=== PATIENT | male | born 1970 | race Caucasian/White ===

== ENCOUNTER 2018-11-21 15:32 | Emergency (ER) | payer OTHER ==
[~2018-11-21] VITALS: Ht 177.8 cm; Wt 81.6 kg
[2018-11-21] MEDS ORDERED: IV NORMAL SALINE 1000ML BAG 1,000 ML IV ONE (16:00)
[2018-11-21] MEDS ORDERED: CLINDAMYCIN 600MG PREMIX 50 ML IV ONE (16:00)
[2018-11-21] MEDS ORDERED: ONDANSETRON PF 4 MG/2 ML VIAL. IM ONE (16:00)
[2018-11-21 16:16] VITALS: BP 118/67
[2018-11-21 16:20] LABS: BASO # 0.1 x10^3/uL (0.0-0.2); BASO % 1 % (0-3); EOS % 0 % (0-3); HEMATOCRIT 41.7 % (39.0-53.0); HEMOGLOBIN 14.4 g/dL (13.0-17.5); LYMPH % 11 % (24-48); MEAN CORPUSCULAR HEMOGLOBIN 32 pg (25-35); MEAN CORPUSCULAR HGB CONC 35 g/dL (31-37); MEAN CORPUSCULAR VOLUME 92 fL (79-100); MONO # 0.4 x10^3/uL (0.0-1.1); MONO % 4 % (0-9); NEUT % 84 % (31-73); PLATELET COUNT 333 x10^3/uL (140-400); RED BLOOD COUNT 4.54 x10^6/uL (4.30-5.70); RED CELL DISTRIBUTION WIDTH 13.8 % (11.5-14.5); WHITE BLOOD COUNT 9.5 x10^3/uL (4.0-11.0)
[2018-11-21] MEDS ORDERED: KETOROLAC 15 MG/ML VIAL. IV ONE (16:30)
[2018-11-21] MEDS ORDERED: fentaNYL PF VIAL 100 MCG/2 ML VIAL IV ONE (16:30)
[2018-11-21 16:36] LABS: CALCIUM 9.3 mg/dL (8.5-10.1); CREATININE 0.8 mg/dL (0.7-1.3); GFR 104.5; POTASSIUM 4.3 mmol/L (3.5-5.1)
[2018-11-21 16:41] LABS: ALBUMIN/GLOBULIN RATIO 1.2 (1.0-1.7); TOTAL BILIRUBIN 0.2 mg/dL (0.2-1.0); TOTAL PROTEIN 7.4 g/dL (6.4-8.2)
[2018-11-21] MEDS ORDERED: ONDA4TAB12 PO (16:55)
[2018-11-21] MEDS ORDERED: CLIN150C14 PO (16:55)
--- NOTE | 2018-11-21 16:55 | PHYS DOC ---
Past Medical History Past Medical History: Anxiety, High Cholesterol, Hypertension Past Surgical History: Tonsillectomy Additional Past Surgical Histo: RIGHT KNEE Additional Information: non smoker Alcohol Use: Occasionally Drug Use: None Adult General Chief Complaint Chief Complaint: CELLULITIS HPI HPI Patient is a 47 year old male who was bit on Wednesday. The location of the bite was on the right upper arm. He went to an urgent care clinic on Wednesday was prescribed a steroid as the doctor thought it was a bee sting. Erythema around the bite has grown since that time it has become more painful. Associated symptoms include nausea, and headache. Rates his pain 7 out of 10. Review of Systems Review of Systems Constitutional: Denies fever or chills [] Eyes: Denies change in visual acuity, redness, or eye pain [] HENT: Denies nasal congestion or sore throat [] Respiratory: Denies cough or shortness of breath [] Cardiovascular: No additional information not addressed in HPI [] GI: Denies abdominal pain, vomiting, bloody stools or diarrhea Reports Nausea : Denies dysuria or hematuria [] Musculoskeletal: Denies back pain or joint pain [] Integument: Denies rash or skin lesions but has cellulitis around right upper arm. Neurologic: Reports headache, Denies focal weakness or sensory changes [] Endocrine: Denies polyuria or polydipsia [] Complete systems were reviewed and found to be within normal limits, except as documented in this note. Current Medications Current Medications Current Medications Medications (Trade) Dose Ordered Sig/Fercho Start Time Stop Time Status Last Admin Dose Admin Clindamycin Phosphate 50 ml @ 100 mls/hr 1X ONCE 11/21/18 16:00 11/21/18 16:29 DC 11/21/18 16:22 100 MLS/HR Fentanyl Citrate (Fentanyl 2ml Vial) 75 mcg 1X ONCE 11/21/18 16:30 11/21/18 16:31 DC 11/21/18 16:40 75 MCG Ketorolac Tromethamine (Toradol 15mg Vial) 15 mg 1X ONCE 11/21/18 16:30 11/21/18 16:31 DC 11/21/18 16:37 15 MG Ondansetron HCl (Zofran) 4 mg 1X ONCE 11/21/18 16:00 11/21/18 16:01 DC 11/21/18 16:13 4 MG Sodium Chloride 1,000 ml @ 1,000 mls/hr 1X ONCE 11/21/18 16:00 11/21/18 16:59 11/21/18 16:14 1,000 MLS/HR Allergies Allergies Allergies Coded Allergies Type Severity Reaction Last Updated Verified morphine Allergy Severe Anaphylaxis 11/21/18 Yes Physical Exam Physical Exam Constitutional: Well developed, well nourished, no acute distress, non-toxic appearance. [] HENT: Normocephalic, atraumatic, bilateral external ears normal, oropharynx moist, no oral exudates, nose normal. [] Eyes: PERRLA, EOMI, conjunctiva normal, no discharge. [] Neck: Normal range of motion, no tenderness, supple, no stridor. [] Cardiovascular:Heart rate regular rhythm, no murmur [] Lungs & Thorax: Bilateral breath sounds clear to auscultation [] Abdomen: Bowel sounds normal, soft, no tenderness, no masses, no pulsatile masses. [] Skin: Warm, dry, erythema around R upper arm, with warmth and swelling. Back: No tenderness, no CVA tenderness. [] Extremities: No tenderness, no cyanosis, no clubbing, ROM intact, no edema. [] Neurologic: Alert and oriented X 3, normal motor function, normal sensory function, no focal deficits noted. [] Psychologic: Affect normal, judgement normal, mood normal. [] Current Patient Data Vital Signs Vital Signs Date Time Temp Pulse Resp B/P (MAP) Pulse Ox O2 Delivery O2 Flow Rate FiO2 11/21/18 16:16 58 20 118/67 (84) 94 Room Air 11/21/18 15:49 97.7 97.7 Lab Values Laboratory Tests Test 11/21/18 15:45 White Blood Count 9.5 x10^3/uL (4.0-11.0) Red Blood Count 4.54 x10^6/uL (4.30-5.70) Hemoglobin 14.4 g/dL (13.0-17.5) Hematocrit 41.7 % (39.0-53.0) Mean Corpuscular Volume 92 fL (79-100) Mean Corpuscular Hemoglobin 32 pg (25-35) Mean Corpuscular Hemoglobin Concent 35 g/dL (31-37) Red Cell Distribution Width 13.8 % (11.5-14.5) Platelet Count 333 x10^3/uL (140-400) Neutrophils (%) (Auto) 84 % (31-73) H Lymphocytes (%) (Auto) 11 % (24-48) L Monocytes (%) (Auto) 4 % (0-9) Eosinophils (%) (Auto) 0 % (0-3) Basophils (%) (Auto) 1 % (0-3) Neutrophils # (Auto) 8.0 x10^3uL (1.8-7.7) H Lymphocytes # (Auto) 1.0 x10^3/uL (1.0-4.8) Monocytes # (Auto) 0.4 x10^3/uL (0.0-1.1) Eosinophils # (Auto) 0.0 x10^3/uL (0.0-0.7) Basophils # (Auto) 0.1 x10^3/uL (0.0-0.2) Sodium Level 139 mmol/L (136-145) Potassium Level 4.3 mmol/L (3.5-5.1) Chloride Level 104 mmol/L (98-107) Carbon Dioxide Level 24 mmol/L (21-32) Anion Gap 11 (6-14) Blood Urea Nitrogen 16 mg/dL (8-26) Creatinine 0.8 mg/dL (0.7-1.3) Estimated GFR (Cockcroft-Gault) 104.5 BUN/Creatinine Ratio 20 (6-20) Glucose Level 112 mg/dL (70-99) H Calcium Level 9.3 mg/dL (8.5-10.1) Total Bilirubin 0.2 mg/dL (0.2-1.0) Aspartate Amino Transferase (AST) 15 U/L (15-37) Alanine Aminotransferase (ALT) 41 U/L (16-63) Alkaline Phosphatase 47 U/L (46-116) Total Protein 7.4 g/dL (6.4-8.2) Albumin 4.0 g/dL (3.4-5.0) Albumin/Globulin Ratio 1.2 (1.0-1.7) Laboratory Tests 11/21/18 15:45 Laboratory Tests 11/21/18 15:45 EKG EKG [] Radiology/Procedures Radiology/Procedures [] Course & Med Decision Making Course & Med Decision Making Pertinent Labs and Imaging studies reviewed. (See chart for details) Will give Clindamycin IV, check labs, and give supportive care. Patient is agreeable. Patient labs shows WBC of 9 otherwise unremarkable. Will put on PO clindamycin and have follow up with primary care doctor. Improved with IV clindamycin. Will d/c home. Arely Disclaimer Purvion Disclaimer This electronic medical record was generated, in whole or in part, using a voice recognition dictation system. Departure Departure Impression: Primary Impression: Cellulitis Disposition: HOME, SELF-CARE Condition: STABLE Referrals: DEJA HOOD MD (PCP) Patient Instructions: Cellulitis Additional Instructions: Please follow up with primary care doctor in regard to cellulitis. Take antibiotics. If continues to grow or get worse come back to ER. Scripts Clindamycin Hcl (CLINDAMYCIN HCL) 150 Mg Capsule 450 MG PO TID for 7 Days, #63 CAP Prov: KATHI MARTINEZ APRN 11/21/18 Ondansetron (ONDANSETRON ODT) 4 Mg Tab.rapdis 1 TAB PO PRN Q6-8HRS PRN for NAUSEA, #16 TAB Prov: KATHI MARTINEZ APRN 11/21/18 Problem Qualifiers Primary Impression: Cellulitis Site of cellulitis: extremity Site of cellulitis of extremity: upper extremity Laterality: right Qualified Codes: L03.113 - Cellulitis of right upper limb KATHI MARTINEZ APRN Nov 21, 2018 16:55
== END 2018-11-21 17:30 | disposition home or self-care (01) ==
LOC: ER 15:32
DX: L03.113 Cellulitis of right upper limb (principal); R51 Headache; R11.0 Nausea; E78.00 Pure hypercholesterolemia, unspecified; I10 Essential (primary) hypertension; Z88.5 Allergy status to narcotic agent
CPT/HCPCS: 36415; 80053; 85025; 96365; 96372; 96375; 99284; J1885; J2405; J3010; J3490; J7030

== ENCOUNTER 2018-11-23 08:46 | Inpatient (IN) | payer OTHER ==
[~2018-11-23] VITALS: Ht 172.7 cm; Wt 68.0 kg
[~2018-11-23 08:46] MED LIST: CLIN150C14 PO; ONDA4TAB12 PO
[2018-11-23] MEDS ORDERED: fentaNYL PF VIAL 100 MCG/2 ML VIAL IV PRN ×2 (09:15→09:30)
[2018-11-23] MEDS ORDERED: VANCOMYCIN PER PHARMACY MC ONE (09:15)
--- NOTE | 2018-11-23 09:24 | PHYS DOC ---
Past Medical History Past Medical History: Anxiety, High Cholesterol, Hypertension Past Surgical History: Tonsillectomy Additional Past Surgical Histo: RIGHT KNEE Alcohol Use: Occasionally Drug Use: None Adult General Chief Complaint Chief Complaint: UPPER EXTREMITY SWELLING HPI HPI Patient is a 47 year old male with history of hypertension-not on medication, high cholesterol, anxiety, smoking, who presents to the ED today complaining of a worsening infection to the right upper extremity. Patient states on Wednesday last week he got bit by an insect, he believes it was a spider though he did not see it. He states he was seen at urgent care he was started on steroids, he states symptoms did not improve, he states the area of redness started to grew bigger, he came to the ED on Wednesday, November 21, 2018, he was given IV clindamycin and discharged with oral clindamycin. He states he has been taking the clindamycin as prescribed this morning he woke up and the area of redness had grown bigger. He showed me pictures of taken on Wednesday of the infection compared to today, the area of redness had grown significantly larger, he states he is having pain whenever he extends his right elbow. He rates the pain at 8 out of 10, describes the pain as sharp and intermittent. Denies anything relieving this pain. Denies any nausea vomiting. Denies any fever. Off note he mentions his and daughter came from [facility] a week before he got bit. PCP Dr. Deja Wilkins Review of Systems Review of Systems Constitutional: Denies fever or chills [] Eyes: Denies change in visual acuity, redness, or eye pain [] HENT: Denies nasal congestion or sore throat [] Respiratory: Denies cough or shortness of breath [] Cardiovascular: No additional information not addressed in HPI [] GI: Denies abdominal pain, nausea, vomiting, bloody stools or diarrhea [] : Denies dysuria or hematuria [] Musculoskeletal: Denies back pain or joint pain [] Integument: Cellulitis right upper extremity Neurologic: Denies headache, focal weakness or sensory changes [] All other systems were reviewed and found to be within normal limits, except as documented in this note. Current Medications Current Medications Allergies Allergies Allergies Coded Allergies Type Severity Reaction Last Updated Verified morphine Allergy Severe Anaphylaxis 11/21/18 Yes Physical Exam Physical Exam Constitutional: Well developed, well nourished, no acute distress, non-toxic appearance. [] HENT: Normocephalic, atraumatic, bilateral external ears normal, oropharynx moist, no oral exudates, nose normal. [] Eyes: PERRLA, EOMI, conjunctiva normal, no discharge. [] Neck: Normal range of motion, no tenderness, supple, no stridor. [] Cardiovascular:Heart rate regular rhythm, no murmur [] Lungs & Thorax: Bilateral breath sounds clear to auscultation [] Abdomen: Bowel sounds normal, soft, no tenderness, no masses, no pulsatile masses. [] Skin: There is mild swelling to the RUE around the inner elbow. Right inner biceps with an area of darkness approx. 1X0.5cm with surrounding cellulitis approx. 10X5 cm. The area with cellulitis is warm, dry, no drainage. Full ROM to JITENDRA, patient and elbow to extend and flex the right elbow though he states it is painful during ROM. +2 right radial pulse. Cap refill <2 seconds to the right fingers. Adequate radial, medial and ulnar sensation to the RUE. Back: No tenderness, no CVA tenderness. [] Extremities: No tenderness, no cyanosis, no clubbing, ROM intact, no edema. [] Neurologic: Alert and oriented X 3, normal motor function, normal sensory function, no focal deficits noted. [] Psychologic: Affect normal, judgement normal, mood normal. [] Current Patient Data Vital Signs Vital Signs Date Time Temp Pulse Resp B/P (MAP) Pulse Ox O2 Delivery O2 Flow Rate FiO2 11/23/18 08:50 98.2 71 16 146/93 (110) 96 Room Air 98.2 EKG EKG [] Radiology/Procedures Radiology/Procedures []PROCEDURE: ELBOW RIGHT 2V Examination: 2 views of the right elbow HISTORY: History of cellulitis, insect bite COMPARISON: None available. Findings/ impression: The alignment of the elbow joint grossly appears unremarkable. Mild soft tissue swelling identified posterior to the elbow joint could be secondary to cellulitis or edema. Electronically signed by: Hai Lutz MD (11/23/2018 9:30 AM) [place] [id number] DICTATED and SIGNED BY: HAI LUTZ MD DATE: 11/23/18 8354 Course & Med Decision Making Course & Med Decision Making Pertinent Labs and Imaging studies reviewed. (See chart for details) This is a 47-year-old male patient who presents to the ED today with worsening cellulitis to the right upper extremity. The patient was bit by an insect but he states that Wednesday last week. Seen at urgent care, started on steroids, came to the ED on Wednesday with worsening symptoms, got clindamycin IV and clindamycin. Was discharged to home. The area of redness has grown bigger. Patient is now complaining of pain when he extends his right elbow. We will start him on sepsis protocol including IV fluids and antibiotics. Advised to consider smoking cessation and following up with PCP for high blood pressure BP here was 140s/90 states he is supposed to take BP medicines but he decided to take supplements and be on a "diet". Spoke with Dr. Newman who accepted patient for admission. Dragon Disclaimer Dragon Disclaimer This electronic medical record was generated, in whole or in part, using a voice recognition dictation system. Departure Departure Impression: Primary Impression: Right arm cellulitis Additional Impressions: Insect bite of right upper extremity Smoking addiction Disposition: ADMITTED INPATIENT Condition: STABLE Referrals: DEJA WILKINS MD (PCP) Problem Qualifiers Additional Impressions: Insect bite of right upper extremity Encounter type: subsequent encounter Qualified Codes: S40.861D - Insect bite (nonvenomous) of right upper arm, subsequent encounter; W57.XXXD - Bitten or stung by nonvenomous insect and other nonvenomous arthropods, subsequent encounter JESICA DRUMMOND APRN Nov 23, 2018 09:24
[2018-11-23] MEDS ORDERED: ONDANSETRON PF 4 MG/2 ML VIAL. ONE (09:29)
[2018-11-23] MEDS ORDERED: ACETAMINOPHEN 325 MG TABLET. PO PRN (09:30)
[2018-11-23] MEDS ORDERED: PIPERACILLIN/TAZOBACTAM 4.5 GM in IV NORMAL SALINE 100ML 100 ML IV ONE (09:30)
--- NOTE | 2018-11-23 09:33 | RAD ---
Examination: 2 views of the right elbow HISTORY: History of cellulitis, insect bite COMPARISON: None available. Findings/ impression: The alignment of the elbow joint grossly appears unremarkable. Mild soft tissue swelling identified posterior to the elbow joint could be secondary to cellulitis or edema. Electronically signed by: Hai Lutz MD (11/23/2018 9:30 AM) [place] [id number]
[2018-11-23] MEDS: IV NORMAL SALINE 1000ML BAG 1,000 ML IV SCH ×4 (09:36→15:53)
[2018-11-23 09:52] LABS: BASO % 1 % (0-3); EOS # 0.4 x10^3/uL (0.0-0.7); EOS % 5 % (0-3); HEMATOCRIT 44.5 % (39.0-53.0); HEMOGLOBIN 15.3 g/dL (13.0-17.5); LYMPH # 1.2 x10^3/uL (1.0-4.8); LYMPH % 17 % (24-48); MEAN CORPUSCULAR HEMOGLOBIN 32 pg (25-35); MEAN CORPUSCULAR HGB CONC 35 g/dL (31-37); MEAN CORPUSCULAR VOLUME 92 fL (79-100); MONO # 0.5 x10^3/uL (0.0-1.1); MONO % 8 % (0-9); NEUT # 4.5 x10^3uL (1.8-7.7); NEUT % 69 % (31-73); PLATELET COUNT 304 x10^3/uL (140-400); RED BLOOD COUNT 4.85 x10^6/uL (4.30-5.70); RED CELL DISTRIBUTION WIDTH 13.6 % (11.5-14.5); WHITE BLOOD COUNT 6.6 x10^3/uL (4.0-11.0)
[2018-11-23 10:02] LABS: CALCIUM 9.5 mg/dL (8.5-10.1); CREATININE 0.8 mg/dL (0.7-1.3); GFR 104.5; POTASSIUM 4.2 mmol/L (3.5-5.1)
[2018-11-23 10:10] LABS: PROTHROMBIN TIME PATIENT 12.2 SEC (11.7-14.0)
[2018-11-23 10:18] LABS: ALBUMIN 3.7 g/dL (3.4-5.0); TOTAL BILIRUBIN 0.2 mg/dL (0.2-1.0); TOTAL PROTEIN 7.3 g/dL (6.4-8.2)
[2018-11-23 10:30] VITALS: BP 142/74
[2018-11-23] MEDS ORDERED: VANCOMYCIN 1.75 GM in IV NORMAL SALINE 500ML BAG 500 ML IV ONE (10:30)
--- NOTE | 2018-11-23 11:00 | NUR ---
Pt admitted from ED. Arrived via gurney. Able to ambulate to bed independently. A&o X4, VSS, c/o pain 8/10, R arm swollen and reddened. Completed admission assessment. IV Abx infusing. Pictures taken of right arm. Oriented to room and routines. Call light within reach. at bedside. Will continue to monitor.
--- NOTE | 2018-11-23 11:30 | PDOC ---
Infectious Disease Note Vital Sign Vital Signs Vital Signs Date Time Temp Pulse Resp B/P (MAP) Pulse Ox O2 Delivery O2 Flow Rate FiO2 11/23/18 10:30 97.6 60 20 142/74 (96) 98 Room Air 97.6 Labs Lab Laboratory Tests Test 11/23/18 09:25 White Blood Count 6.6 x10^3/uL (4.0-11.0) Red Blood Count 4.85 x10^6/uL (4.30-5.70) Hemoglobin 15.3 g/dL (13.0-17.5) Hematocrit 44.5 % (39.0-53.0) Mean Corpuscular Volume 92 fL (79-100) Mean Corpuscular Hemoglobin 32 pg (25-35) Mean Corpuscular Hemoglobin Concent 35 g/dL (31-37) Red Cell Distribution Width 13.6 % (11.5-14.5) Platelet Count 304 x10^3/uL (140-400) Neutrophils (%) (Auto) 69 % (31-73) Lymphocytes (%) (Auto) 17 % (24-48) Monocytes (%) (Auto) 8 % (0-9) Eosinophils (%) (Auto) 5 % (0-3) Basophils (%) (Auto) 1 % (0-3) Neutrophils # (Auto) 4.5 x10^3uL (1.8-7.7) Lymphocytes # (Auto) 1.2 x10^3/uL (1.0-4.8) Monocytes # (Auto) 0.5 x10^3/uL (0.0-1.1) Eosinophils # (Auto) 0.4 x10^3/uL (0.0-0.7) Basophils # (Auto) 0.0 x10^3/uL (0.0-0.2) Prothrombin Time 12.2 SEC (11.7-14.0) Prothromb Time International Ratio 0.9 (0.8-1.1) Activated Partial Thromboplast Time 27 SEC (24-38) Sodium Level 138 mmol/L (136-145) Potassium Level 4.2 mmol/L (3.5-5.1) Chloride Level 101 mmol/L (98-107) Carbon Dioxide Level 25 mmol/L (21-32) Anion Gap 12 (6-14) Blood Urea Nitrogen 16 mg/dL (8-26) Creatinine 0.8 mg/dL (0.7-1.3) Estimated GFR (Cockcroft-Gault) 104.5 BUN/Creatinine Ratio 20 (6-20) Glucose Level 109 mg/dL (70-99) Lactic Acid Level 1.4 mmol/L (0.4-2.0) Calcium Level 9.5 mg/dL (8.5-10.1) Total Bilirubin 0.2 mg/dL (0.2-1.0) Aspartate Amino Transf (AST/SGOT) 16 U/L (15-37) Alanine Aminotransferase (ALT/SGPT) 42 U/L (16-63) Alkaline Phosphatase 46 U/L (46-116) Total Protein 7.3 g/dL (6.4-8.2) Albumin 3.7 g/dL (3.4-5.0) Albumin/Globulin Ratio 1.0 (1.0-1.7) Objective Assessment Right UE bug bite - discoloration and blanching RUE erythema ? toxin reaction vs Cellulitis Eosinophilia Mild general rash ? reactive Plan Plan of Care D/c Vanc Po Zyvox Cont Zosyn Zyrtec/Pepcid F/u labs and cults Monitor arm ck D/w Thank you # [id number] VICKY GARCÍA MD Nov 23, 2018 11:30
[2018-11-23] MEDS: FAMOTIDINE 20 MG TABLET. PO SCH ×2 (12:18→20:39)
[2018-11-23] MEDS: CETIRIZINE HCL 10 MG TABLET. PO SCH (12:18)
[2018-11-23] MEDS: NICOTINE 21MG PATCH. TD SCH (12:23)
[2018-11-23] MEDS: fentaNYL PF VIAL 100 MCG/2 ML VIAL IV PRN ×2 (13:49→20:39)
[2018-11-23] MEDS: oxyCODONE/APAP 7.5/325 1 TAB TABLET PO PRN ×2 (13:50→18:38)
[2018-11-23] MEDS: PIPERACILLIN/TAZOBACTAM 3.375 GM in IV NORMAL SALINE 50ML 50 ML IV SCH ×3 (13:50→23:28)
[2018-11-23 15:00] VITALS: BP 127/77
[2018-11-23] MEDS ORDERED: ZOLPIDEM 5 MG TABLET. PO PRN (15:15)
[2018-11-23] MEDS ORDERED: diphenhydrAMINE 50 MG/ML VIAL IVP ONE (15:15)
[2018-11-23] MEDS ORDERED: DIPHENHYDRAMINE/ZINC ACETATE 2%/0.1% TOPICAL CREAM 28GM TUBE. TP PRN (15:15)
--- NOTE | 2018-11-23 15:25 | PDOC1 ---
History and Physical Date of Admission Date of Admission DATE: 11/23/18 TIME: 15:22 History of Present Illness History of Present Illness Mr. Moraes is a 47 year old male with history of hypertension-not on medication, high cholesterol, anxiety, smoking, who presents to the ED today complaining of a worsening infection to the right upper extremity. Patient states on Wednesday last week he got bit by an insect, he believes it was a spider though he did not see it. He states he was seen at urgent care he was started on steroids, he states symptoms did not improve, he states the area of redness started to grew bigger, he came to the ED on Wednesday, November 21, 2018, he was given IV clindamycin and discharged with oral clindamycin. He states he has been taking the clindamycin as prescribed this morning he woke up and the area of redness had grown bigger. He showed me pictures of taken on Wednesday of the infection compared to today, the area of redness had grown significantly larger, he states he is having pain whenever he extends his right elbow. He rates the pain at 8 out of 10, describes the pain as sharp and intermittent. Denies anything relieving this pain. Denies any nausea vomiting. Denies any fever. Off note he mentions his and daughter came from [facility] a week before he got bit. Social History Smoke: <1 pack per day ALCOHOL: rare Drugs: None Current Problem List Problem List Problems Medical Problems: (1) Insect bite of right upper extremity Status: Acute (2) Right arm cellulitis Status: Acute (3) Smoking addiction Status: Acute Current Medications Current Medications Current Medications Piperacillin Sod/ Tazobactam Sod 4.5 gm/Sodium Chloride 100 ml @ 200 mls/hr 1X ONCE IV Last administered on 11/23/18at 09:54; Start 11/23/18 at 09:30; Stop 11/23/18 at 09:59; Status DC Vancomycin HCl (Vanco Per Pharmacy) 1 each 1X ONCE [facility] ; Start 11/23/18 at 09:15; Stop 11/23/18 at 09:16; Status DC Sodium Chloride 1,000 ml @ 2,460 mls/hr Q25M IV Last administered on 11/23/18at 09:36; Start 11/23/18 at 09:30; Stop 11/23/18 at 10:30; Status DC Fentanyl Citrate (Fentanyl 2ml Vial) 50 mcg PRN Q15MIN PRN IV PAIN GREATER THAN 3/10 Last administered on 11/23/18at 09:39; Start 11/23/18 at 09:15; Stop 11/23/18 at 11:23; Status DC Ondansetron HCl (Zofran) 4 mg STK-MED ONCE .ROUTE ; Start 11/23/18 at 09:29; Stop 11/23/18 at 09:30; Status DC Fentanyl Citrate (Fentanyl 2ml Vial) 50 mcg PRN Q1HR PRN IV PAIN Last administered on 11/23/18at 12:19; Start 11/23/18 at 09:30; Stop 11/23/18 at 13:29; Status DC Acetaminophen (Tylenol) 650 mg PRN Q4HRS PRN PO FEVER; Start 11/23/18 at 09:30; Stop 11/24/18 at 09:29 Nicotine (Nicoderm Cq 21mg) 1 patch DAILY TD Last administered on 11/23/18at 12:23; Start 11/23/18 at 11:00 Vancomycin HCl 1.75 gm/Sodium Chloride 500 ml @ 250 mls/hr 1X ONCE IV Last administered on 11/23/18at 10:00; Start 11/23/18 at 10:30; Stop 11/23/18 at 12:29; Status DC Famotidine (Pepcid) 20 mg BID PO Last administered on 11/23/18 12:18; Start 11/23/18 at 12:00 Cetirizine HCl (ZyrTEC) 10 mg DAILY PO Last administered on 11/23/18at 12:18; Start 11/23/18 at 11:30 Linezolid (Zyvox) 600 mg BID PO ; Start 11/23/18 at 21:00 Piperacillin Sod/ Tazobactam Sod 3.375 gm/Sodium Chloride 50 ml @ 100 mls/hr Q6HRS IV Last administered on 11/23/18at 13:50; Start 11/23/18 at 14:00 Fentanyl Citrate (Fentanyl 2ml Vial) 75 mcg PRN Q2HR PRN IV PAIN Last administered on 11/23/18at 13:49; Start 11/23/18 at 13:30 Oxycodone/ Acetaminophen (Percocet 7.5/ 325) 1 tab PRN Q4HRS PRN PO PAIN Last administered on 11/23/18at 13:50; Start 11/23/18 at 13:30 Active Scripts Active Clindamycin Hcl 150 Mg Capsule 450 Mg PO TID 7 Days Ondansetron Odt (Ondansetron) 4 Mg Tab.rapdis 1 Tab PO PRN Q6-8HRS PRN Allergies Allergies: Coded Allergies: morphine (Verified Allergy, Severe, Anaphylaxis, 11/21/18) THROAT SWELLING ROS General: YES: Chills, Fatigue, Malaise; No: Night Sweats, Appetite, Other PSYCHOLOGICAL ROS: YES: Sleep disturbances; No: Anxiety, Behavioral Disorder, Concentration difficultie, Decreased libido, Depression, Disorientation, Hallucinations, Hostility, Irritablity, Memory difficulties, Mood Swings, Obsessive thoughts, Other Eyes: No Blurry vision, No Decreased vision, No Double vision, No Dry eyes, No Excessive tearing, No Eye Pain, No Itchy Eyes, No Loss of vision, No Photophobia, No Scotomata, No Uses contacts, No Uses glasses, No Other HEENT: No: Heacaches, Visual Changes, Hearing change, Nasal congestion, Nasal discharge, Oral lesions, Sinus pain, Sore Throat, Epistaxis, Sneezing, Snoring, Tinnitus, Vertigo, Vocal changes, Other Respiratory: No: Cough, Hemoptysis, Orthopnea, Pleuritic Pain, Shortness of breath, SOB with excertion, Sputum Changes, Stridor, Tachypnea, Wheezing, Other Cardiovascular: No Chest Pain, No Palpitations, No Orthopnea, No Paroxysmal Noc. Dyspnea, No Edema, No Lt Headedness, No Other Gastrointestinal: No Nausea, No Vomiting, No Abdominal Pain, No Diarrhea, No Constipation, No Melena, No Hematochezia, No Other Genitourinary: No Dysuria, No Frequency, No Incontinence, No Hematuria, No Retention, No Discharge, No Urgency, No Pain, No Flank Pain, No Other, No , No , No , No , No , No , No Musculoskeletal: No Gait Disturbance, No Joint Pain, No Joint Stiffness, No Joint Swelling, No Muscle Pain, No Muscular Weakness, No Pain In:, No Swelling In:, No Other Neurological: No Behavorial Changes, No Bowel/Bladder ControlChng, No Confusion, No Dizziness, No Gait Disturbance, No Headaches, No Impaired Coord/ balance, No Memory Loss, No Numbness/Tingling, No Seizures, No Speech Problems, No Tremors, No Visual Changes, No Weakness, No Other Skin: Yes Dry Skin, Yes Rash, Yes Skin Lesion Changes, Yes Other (pain and puritis, ) Physical Exam General: Alert, Oriented X3, Cooperative, mild distress, moderate distress HEENT: Atraumatic, PERRLA, EOMI Lungs: Clear to auscultation, Normal air movement Heart: S1S2, RRR, no gallops Abdomen: Normal bowel sounds, Soft Rectal Exam: not examined Extremities: Other Skin: Other (right arm red, demarkated with central small lesion without induration, appears no abscess, ) Neuro: Normal speech, Sensation intact Vitals Vitals Vital Signs Date Time Temp Pulse Resp B/P (MAP) Pulse Ox O2 Delivery O2 Flow Rate FiO2 11/23/18 14:50 Room Air 11/23/18 10:30 97.6 60 20 142/74 (96) 98 97.6 Labs Labs Laboratory Tests Test 11/23/18 09:25 11/23/18 13:05 White Blood Count 6.6 x10^3/uL (4.0-11.0) Red Blood Count 4.85 x10^6/uL (4.30-5.70) Hemoglobin 15.3 g/dL (13.0-17.5) Hematocrit 44.5 % (39.0-53.0) Mean Corpuscular Volume 92 fL (79-100) Mean Corpuscular Hemoglobin 32 pg (25-35) Mean Corpuscular Hemoglobin Concent 35 g/dL (31-37) Red Cell Distribution Width 13.6 % (11.5-14.5) Platelet Count 304 x10^3/uL (140-400) Neutrophils (%) (Auto) 69 % (31-73) Lymphocytes (%) (Auto) 17 % (24-48) Monocytes (%) (Auto) 8 % (0-9) Eosinophils (%) (Auto) 5 % (0-3) Basophils (%) (Auto) 1 % (0-3) Neutrophils # (Auto) 4.5 x10^3uL (1.8-7.7) Lymphocytes # (Auto) 1.2 x10^3/uL (1.0-4.8) Monocytes # (Auto) 0.5 x10^3/uL (0.0-1.1) Eosinophils # (Auto) 0.4 x10^3/uL (0.0-0.7) Basophils # (Auto) 0.0 x10^3/uL (0.0-0.2) Prothrombin Time 12.2 SEC (11.7-14.0) Prothromb Time International Ratio 0.9 (0.8-1.1) Activated Partial Thromboplast Time 27 SEC (24-38) Sodium Level 138 mmol/L (136-145) Potassium Level 4.2 mmol/L (3.5-5.1) Chloride Level 101 mmol/L (98-107) Carbon Dioxide Level 25 mmol/L (21-32) Anion Gap 12 (6-14) Blood Urea Nitrogen 16 mg/dL (8-26) Creatinine 0.8 mg/dL (0.7-1.3) Estimated GFR (Cockcroft-Gault) 104.5 BUN/Creatinine Ratio 20 (6-20) Glucose Level 109 mg/dL (70-99) Lactic Acid Level 1.4 mmol/L (0.4-2.0) 1.8 mmol/L (0.4-2.0) Calcium Level 9.5 mg/dL (8.5-10.1) Total Bilirubin 0.2 mg/dL (0.2-1.0) Aspartate Amino Transf (AST/SGOT) 16 U/L (15-37) Alanine Aminotransferase (ALT/SGPT) 42 U/L (16-63) Alkaline Phosphatase 46 U/L (46-116) Creatine Kinase 40 U/L (39-308) Total Protein 7.3 g/dL (6.4-8.2) Albumin 3.7 g/dL (3.4-5.0) Albumin/Globulin Ratio 1.0 (1.0-1.7) Laboratory Tests Test 11/23/18 09:25 11/23/18 13:05 White Blood Count 6.6 x10^3/uL (4.0-11.0) Red Blood Count 4.85 x10^6/uL (4.30-5.70) Hemoglobin 15.3 g/dL (13.0-17.5) Hematocrit 44.5 % (39.0-53.0) Mean Corpuscular Volume 92 fL (79-100) Mean Corpuscular Hemoglobin 32 pg (25-35) Mean Corpuscular Hemoglobin Concent 35 g/dL (31-37) Red Cell Distribution Width 13.6 % (11.5-14.5) Platelet Count 304 x10^3/uL (140-400) Neutrophils (%) (Auto) 69 % (31-73) Lymphocytes (%) (Auto) 17 % (24-48) Monocytes (%) (Auto) 8 % (0-9) Eosinophils (%) (Auto) 5 % (0-3) Basophils (%) (Auto) 1 % (0-3) Neutrophils # (Auto) 4.5 x10^3uL (1.8-7.7) Lymphocytes # (Auto) 1.2 x10^3/uL (1.0-4.8) Monocytes # (Auto) 0.5 x10^3/uL (0.0-1.1) Eosinophils # (Auto) 0.4 x10^3/uL (0.0-0.7) Basophils # (Auto) 0.0 x10^3/uL (0.0-0.2) Prothrombin Time 12.2 SEC (11.7-14.0) Prothromb Time International Ratio 0.9 (0.8-1.1) Activated Partial Thromboplast Time 27 SEC (24-38) Sodium Level 138 mmol/L (136-145) Potassium Level 4.2 mmol/L (3.5-5.1) Chloride Level 101 mmol/L (98-107) Carbon Dioxide Level 25 mmol/L (21-32) Anion Gap 12 (6-14) Blood Urea Nitrogen 16 mg/dL (8-26) Creatinine 0.8 mg/dL (0.7-1.3) Estimated GFR (Cockcroft-Gault) 104.5 BUN/Creatinine Ratio 20 (6-20) Glucose Level 109 mg/dL (70-99) Lactic Acid Level 1.4 mmol/L (0.4-2.0) 1.8 mmol/L (0.4-2.0) Calcium Level 9.5 mg/dL (8.5-10.1) Total Bilirubin 0.2 mg/dL (0.2-1.0) Aspartate Amino Transf (AST/SGOT) 16 U/L (15-37) Alanine Aminotransferase (ALT/SGPT) 42 U/L (16-63) Alkaline Phosphatase 46 U/L (46-116) Creatine Kinase 40 U/L (39-308) Total Protein 7.3 g/dL (6.4-8.2) Albumin 3.7 g/dL (3.4-5.0) Albumin/Globulin Ratio 1.0 (1.0-1.7) VTE Prophylaxis Ordered VTE Prophylaxis Devices: No VTE Pharmacological Prophylaxi: Yes Assessment/Plan Assessment/Plan cellulitis w/o sepsis RUE, with puritis and severe pain ID consult, abx changed, had failed clinda, likely insect bite story tobacco use disrer, ENRRIQUE Waddell MD Nov 23, 2018 15:25
[2018-11-23] MEDS: KETOROLAC 30 MG/ML VIAL. IV PRN ×2 (15:59→23:36)
--- NOTE | 2018-11-23 16:17 | NUR ---
Wound Care Pt seen for wound care consultation re: R arm cellulitis. Admission photo taken by ZAK Dai, no open wound to measure, with extended generalized redness, dusky centralized area over bicep. Educated pt on f/u in wound clinic if dusky area begins to turn necrotic or start to drain, pt v/u.
[2018-11-23] MEDS ORDERED: SERT50TA PO (16:29)
[2018-11-23 19:00] VITALS: BP 127/68
[2018-11-23] MEDS: LINEZOLID 600 MG TABLET PO SCH (20:39)
[2018-11-23] MEDS: diphenhydrAMINE HCL 25 MG CAPSULE PO PRN (21:32)
[2018-11-23 23:00] VITALS: BP 125/62
[2018-11-24 03:00] VITALS: BP 111/64
--- NOTE | 2018-11-24 04:35 | CONS ---
DATE OF CONSULTATION: 11/23/2018 The patient's room 416. REQUESTING PHYSICIAN: Dr. Newman. REASON FOR CONSULTATION: Cellulitis. HISTORY OF PRESENT ILLNESS: The patient is a pleasant 47-year-old gentleman, who states on 11/18/2018, he felt a bite or sting on the inner side of his right arm. He denies seeing any spiders in the house. He was in the house. He states he went out on the deck. Over time, the area became more red and inflamed. On 11/19/2018, he presented to the urgent care and was prescribed steroids. However, on the 11/21/2018, he tried to go to work, experienced dizziness, nausea, vomiting, felt faint, had increased erythema of his right upper extremity and thought he may have had little bit of a wheeze as well. Did not have any sinus congestion or sore throat or chest pain. Denied any dysuria or constipation. Denied any swelling of his joints. He therefore presented to [facility]. Had a white count of 9.5 with 84 segs and was prescribed clindamycin and discharged, but today, he returned to the Emergency Room this morning with complaints of increased erythema as well as increasing pain. He did obtain an x-ray of his elbow that showed the alignment was grossly unremarkable. Mild soft tissue swelling identified posterior to the elbow joint. He has been placed on vancomycin and Zosyn and admitted to the hospital. PAST MEDICAL HISTORY: Positive for anxiety, hypercholesterolemia, hypertension. PAST SURGICAL HISTORY: Positive for tonsillectomy, right knee surgery. ALLERGIES: No known antibiotic allergies. REVIEW OF SYSTEMS: He did go to the [place] previously and had some sun exposure, but he does have some increasing redness about his trunk and left upper extremity today. Review of systems otherwise negative. SOCIAL HISTORY: He works for [employer]. He is a smoker, rare alcohol. Has a dog at home and is . FAMILY HISTORY: Negative for any similar instances or illnesses. CURRENT MEDICATIONS: Include vancomycin and Zosyn x 1, Nicoderm patch, Zofran and Tylenol. PHYSICAL EXAMINATION: VITAL SIGNS: He is afebrile, temperature is 97.6, pulse 60, respirations 20, blood pressure 142/74, satting 98% on room air. CONSTITUTIONAL: He is lying in bed. He is cooperative. He is in no acute distress. HEENT: Pupils are equal and reactive with normal conjunctivae. Oral cavity, pharynx is clear. No signs of breakdown. NECK: Supple, no JVD. LUNGS: Clear to auscultation. No wheeze. HEART: S1, S2. ABDOMEN: Soft, nontender, nondistended with positive bowel sounds, no guarding. EXTREMITIES: Without clubbing or cyanosis. Medial of his aspect of his right upper extremity has erythema from his mid forearm to his mid biceps area. There is an area of purplish discoloration, surrounded by some blanching. There is no fullness. There is some tenderness. There is no gross induration. There is trace warmth. SKIN: Otherwise, warm. He has some sun tanned areas on his abdominal area, but there was question of whether there was some mild erythema and some erythema on his left upper extremity. IV site is clean. NEUROLOGIC: He is nonfocal. PSYCHIATRIC: Affect is pleasant. LABORATORY DATA: White count 6.6, hemoglobin 15.3, platelets of 304, neutrophils 69, lymphs 17, eos 5, creatinine 0.8, glucose 109. Normal liver function study tests. Radiology reviewed in history of present illness. IMPRESSION: 1. Right upper extremity bug bite. There is discoloration and blanching consistent with a bite. 2. Right upper extremity erythema, questionable related to toxin reaction versus some surrounding cellulitis. 3. Eosinophilia. 4. Mild general rash, questionable reactive. RECOMMENDATIONS: For now, we will discontinue any further vancomycin. We will add oral Zyvox which helps with the toxin production, also covers staph and strep, although he denies any previous skin infections. We will continue Zosyn for now. Also prescribe Zyrtec and Pepcid, which will help with toxin and allergic reaction. Follow up his labs and cultures. We will monitor his arm to ensure that the area does not worsen. We will get a baseline CK. This was discussed with his . Thank you for allowing me to participate in this patient's care. If you have any questions, please do not hesitate to contact me. VICKY GARCÍA MD DR: EMERSON/susanne JOB#: [id number] / [id number]
[2018-11-24] MEDS: fentaNYL PF VIAL 100 MCG/2 ML VIAL IV PRN (05:11)
[2018-11-24] MEDS: oxyCODONE/APAP 7.5/325 1 TAB TABLET PO PRN ×3 (05:11→21:32)
[2018-11-24] MEDS: IV NORMAL SALINE 1000ML BAG 1,000 ML IV SCH ×3 (05:12→19:07)
[2018-11-24] MEDS: PIPERACILLIN/TAZOBACTAM 3.375 GM in IV NORMAL SALINE 50ML 50 ML IV SCH ×4 (05:38→23:27)
[2018-11-24 06:06] LABS: BASO % 0 % (0-3); EOS # 0.4 x10^3/uL (0.0-0.7); EOS % 6 % (0-3); HEMATOCRIT 40.2 % (39.0-53.0); HEMOGLOBIN 13.6 g/dL (13.0-17.5); LYMPH # 1.9 x10^3/uL (1.0-4.8); LYMPH % 31 % (24-48); MEAN CORPUSCULAR HEMOGLOBIN 31 pg (25-35); MEAN CORPUSCULAR HGB CONC 34 g/dL (31-37); MEAN CORPUSCULAR VOLUME 92 fL (79-100); MONO # 0.6 x10^3/uL (0.0-1.1); MONO % 9 % (0-9); NEUT # 3.4 x10^3uL (1.8-7.7); NEUT % 54 % (31-73); PLATELET COUNT 264 x10^3/uL (140-400); RED BLOOD COUNT 4.36 x10^6/uL (4.30-5.70); RED CELL DISTRIBUTION WIDTH 13.7 % (11.5-14.5); WHITE BLOOD COUNT 6.2 x10^3/uL (4.0-11.0)
[2018-11-24 06:42] LABS: CALCIUM 8.7 mg/dL (8.5-10.1); CREATININE 0.9 mg/dL (0.7-1.3); DIRECT BILIRUBIN 0.1 mg/dL (0.0-0.2); GFR 91.3; POTASSIUM 4.4 mmol/L (3.5-5.1); TOTAL BILIRUBIN 0.2 mg/dL (0.2-1.0)
[2018-11-24 07:00] VITALS: BP 121/70
[2018-11-24] MEDS: CETIRIZINE HCL 10 MG TABLET. PO SCH (08:43)
[2018-11-24] MEDS: KETOROLAC 30 MG/ML VIAL. IV PRN ×3 (08:43→23:27)
[2018-11-24] MEDS: LINEZOLID 600 MG TABLET PO SCH ×2 (08:43→19:56)
[2018-11-24] MEDS: FAMOTIDINE 20 MG TABLET. PO SCH ×2 (08:43→19:57)
[2018-11-24] MEDS: SERTRALINE 50 MG TABLET. PO SCH (08:43)
[2018-11-24] MEDS: NICOTINE 21MG PATCH. TD SCH (08:43)
[2018-11-24] MEDS: diphenhydrAMINE HCL 25 MG CAPSULE PO PRN ×2 (08:44→19:07)
--- NOTE | 2018-11-24 09:03 | PDOC ---
PROGRESS NOTES Chief Complaint Chief Complaint cellulitis w/o sepsis right upper arm RUE, with puritis and severe pain ID consult, abx changed, had failed clinda, likely insect bite story tobacco use History of Present Illness History of Present Illness feels better pain better still some redness Vitals Vitals Vital Signs Date Time Temp Pulse Resp B/P (MAP) Pulse Ox O2 Delivery O2 Flow Rate FiO2 11/24/18 07:40 Room Air 11/24/18 07:00 98.4 58 16 121/70 (87) 96 98.4 Physical Exam General: Alert, Oriented X3, Cooperative, No acute distress Heart: Regular rate, No murmurs Abdomen: Normal bowel sounds, Soft Extremities: No cyanosis, Other Skin: No rashes, Other (right arm red, demarkated with central small lesion without induration, appears no abscess, ) Labs LABS Laboratory Tests Test 11/23/18 09:25 11/23/18 13:05 11/24/18 05:15 White Blood Count 6.6 x10^3/uL (4.0-11.0) 6.2 x10^3/uL (4.0-11.0) Red Blood Count 4.85 x10^6/uL (4.30-5.70) 4.36 x10^6/uL (4.30-5.70) Hemoglobin 15.3 g/dL (13.0-17.5) 13.6 g/dL (13.0-17.5) Hematocrit 44.5 % (39.0-53.0) 40.2 % (39.0-53.0) Mean Corpuscular Volume 92 fL (79-100) 92 fL (79-100) Mean Corpuscular Hemoglobin 32 pg (25-35) 31 pg (25-35) Mean Corpuscular Hemoglobin Concent 35 g/dL (31-37) 34 g/dL (31-37) Red Cell Distribution Width 13.6 % (11.5-14.5) 13.7 % (11.5-14.5) Platelet Count 304 x10^3/uL (140-400) 264 x10^3/uL (140-400) Neutrophils (%) (Auto) 69 % (31-73) 54 % (31-73) Lymphocytes (%) (Auto) 17 % (24-48) 31 % (24-48) Monocytes (%) (Auto) 8 % (0-9) 9 % (0-9) Eosinophils (%) (Auto) 5 % (0-3) 6 % (0-3) Basophils (%) (Auto) 1 % (0-3) 0 % (0-3) Neutrophils # (Auto) 4.5 x10^3uL (1.8-7.7) 3.4 x10^3uL (1.8-7.7) Lymphocytes # (Auto) 1.2 x10^3/uL (1.0-4.8) 1.9 x10^3/uL (1.0-4.8) Monocytes # (Auto) 0.5 x10^3/uL (0.0-1.1) 0.6 x10^3/uL (0.0-1.1) Eosinophils # (Auto) 0.4 x10^3/uL (0.0-0.7) 0.4 x10^3/uL (0.0-0.7) Basophils # (Auto) 0.0 x10^3/uL (0.0-0.2) 0.0 x10^3/uL (0.0-0.2) Prothrombin Time 12.2 SEC (11.7-14.0) Prothromb Time International Ratio 0.9 (0.8-1.1) Activated Partial Thromboplast Time 27 SEC (24-38) Sodium Level 138 mmol/L (136-145) 140 mmol/L (136-145) Potassium Level 4.2 mmol/L (3.5-5.1) 4.4 mmol/L (3.5-5.1) Chloride Level 101 mmol/L (98-107) 106 mmol/L (98-107) Carbon Dioxide Level 25 mmol/L (21-32) 24 mmol/L (21-32) Anion Gap 12 (6-14) 10 (6-14) Blood Urea Nitrogen 16 mg/dL (8-26) 15 mg/dL (8-26) Creatinine 0.8 mg/dL (0.7-1.3) 0.9 mg/dL (0.7-1.3) Estimated GFR (Cockcroft-Gault) 104.5 91.3 BUN/Creatinine Ratio 20 (6-20) Glucose Level 109 mg/dL (70-99) 103 mg/dL (70-99) Lactic Acid Level 1.4 mmol/L (0.4-2.0) 1.8 mmol/L (0.4-2.0) Calcium Level 9.5 mg/dL (8.5-10.1) 8.7 mg/dL (8.5-10.1) Total Bilirubin 0.2 mg/dL (0.2-1.0) 0.2 mg/dL (0.2-1.0) Aspartate Amino Transf (AST/SGOT) 16 U/L (15-37) 23 U/L (15-37) Alanine Aminotransferase (ALT/SGPT) 42 U/L (16-63) 44 U/L (16-63) Alkaline Phosphatase 46 U/L (46-116) 37 U/L (46-116) Creatine Kinase 40 U/L (39-308) Total Protein 7.3 g/dL (6.4-8.2) 6.0 g/dL (6.4-8.2) Albumin 3.7 g/dL (3.4-5.0) 3.0 g/dL (3.4-5.0) Albumin/Globulin Ratio 1.0 (1.0-1.7) Direct Bilirubin 0.1 mg/dL (0.0-0.2) Assessment and Plan Assessmemt and Plan Problems Medical Problems: (1) Insect bite of right upper extremity Status: Acute (2) Right arm cellulitis Status: Acute (3) Smoking addiction Status: Acute Comment Review of Relevant I have reviewed the following items ramakrishna (where applicable) has been applied. Labs Laboratory Tests Test 11/23/18 09:25 11/23/18 13:05 11/24/18 05:15 White Blood Count 6.6 x10^3/uL (4.0-11.0) 6.2 x10^3/uL (4.0-11.0) Red Blood Count 4.85 x10^6/uL (4.30-5.70) 4.36 x10^6/uL (4.30-5.70) Hemoglobin 15.3 g/dL (13.0-17.5) 13.6 g/dL (13.0-17.5) Hematocrit 44.5 % (39.0-53.0) 40.2 % (39.0-53.0) Mean Corpuscular Volume 92 fL (79-100) 92 fL (79-100) Mean Corpuscular Hemoglobin 32 pg (25-35) 31 pg (25-35) Mean Corpuscular Hemoglobin Concent 35 g/dL (31-37) 34 g/dL (31-37) Red Cell Distribution Width 13.6 % (11.5-14.5) 13.7 % (11.5-14.5) Platelet Count 304 x10^3/uL (140-400) 264 x10^3/uL (140-400) Neutrophils (%) (Auto) 69 % (31-73) 54 % (31-73) Lymphocytes (%) (Auto) 17 % (24-48) 31 % (24-48) Monocytes (%) (Auto) 8 % (0-9) 9 % (0-9) Eosinophils (%) (Auto) 5 % (0-3) 6 % (0-3) Basophils (%) (Auto) 1 % (0-3) 0 % (0-3) Neutrophils # (Auto) 4.5 x10^3uL (1.8-7.7) 3.4 x10^3uL (1.8-7.7) Lymphocytes # (Auto) 1.2 x10^3/uL (1.0-4.8) 1.9 x10^3/uL (1.0-4.8) Monocytes # (Auto) 0.5 x10^3/uL (0.0-1.1) 0.6 x10^3/uL (0.0-1.1) Eosinophils # (Auto) 0.4 x10^3/uL (0.0-0.7) 0.4 x10^3/uL (0.0-0.7) Basophils # (Auto) 0.0 x10^3/uL (0.0-0.2) 0.0 x10^3/uL (0.0-0.2) Prothrombin Time 12.2 SEC (11.7-14.0) Prothromb Time International Ratio 0.9 (0.8-1.1) Activated Partial Thromboplast Time 27 SEC (24-38) Sodium Level 138 mmol/L (136-145) 140 mmol/L (136-145) Potassium Level 4.2 mmol/L (3.5-5.1) 4.4 mmol/L (3.5-5.1) Chloride Level 101 mmol/L (98-107) 106 mmol/L (98-107) Carbon Dioxide Level 25 mmol/L (21-32) 24 mmol/L (21-32) Anion Gap 12 (6-14) 10 (6-14) Blood Urea Nitrogen 16 mg/dL (8-26) 15 mg/dL (8-26) Creatinine 0.8 mg/dL (0.7-1.3) 0.9 mg/dL (0.7-1.3) Estimated GFR (Cockcroft-Gault) 104.5 91.3 BUN/Creatinine Ratio 20 (6-20) Glucose Level 109 mg/dL (70-99) 103 mg/dL (70-99) Lactic Acid Level 1.4 mmol/L (0.4-2.0) 1.8 mmol/L (0.4-2.0) Calcium Level 9.5 mg/dL (8.5-10.1) 8.7 mg/dL (8.5-10.1) Total Bilirubin 0.2 mg/dL (0.2-1.0) 0.2 mg/dL (0.2-1.0) Aspartate Amino Transf (AST/SGOT) 16 U/L (15-37) 23 U/L (15-37) Alanine Aminotransferase (ALT/SGPT) 42 U/L (16-63) 44 U/L (16-63) Alkaline Phosphatase 46 U/L (46-116) 37 U/L (46-116) Creatine Kinase 40 U/L (39-308) Total Protein 7.3 g/dL (6.4-8.2) 6.0 g/dL (6.4-8.2) Albumin 3.7 g/dL (3.4-5.0) 3.0 g/dL (3.4-5.0) Albumin/Globulin Ratio 1.0 (1.0-1.7) Direct Bilirubin 0.1 mg/dL (0.0-0.2) Laboratory Tests Test 11/23/18 09:25 11/23/18 13:05 11/24/18 05:15 White Blood Count 6.6 x10^3/uL (4.0-11.0) 6.2 x10^3/uL (4.0-11.0) Red Blood Count 4.85 x10^6/uL (4.30-5.70) 4.36 x10^6/uL (4.30-5.70) Hemoglobin 15.3 g/dL (13.0-17.5) 13.6 g/dL (13.0-17.5) Hematocrit 44.5 % (39.0-53.0) 40.2 % (39.0-53.0) Mean Corpuscular Volume 92 fL (79-100) 92 fL (79-100) Mean Corpuscular Hemoglobin 32 pg (25-35) 31 pg (25-35) Mean Corpuscular Hemoglobin Concent 35 g/dL (31-37) 34 g/dL (31-37) Red Cell Distribution Width 13.6 % (11.5-14.5) 13.7 % (11.5-14.5) Platelet Count 304 x10^3/uL (140-400) 264 x10^3/uL (140-400) Neutrophils (%) (Auto) 69 % (31-73) 54 % (31-73) Lymphocytes (%) (Auto) 17 % (24-48) 31 % (24-48) Monocytes (%) (Auto) 8 % (0-9) 9 % (0-9) Eosinophils (%) (Auto) 5 % (0-3) 6 % (0-3) Basophils (%) (Auto) 1 % (0-3) 0 % (0-3) Neutrophils # (Auto) 4.5 x10^3uL (1.8-7.7) 3.4 x10^3uL (1.8-7.7) Lymphocytes # (Auto) 1.2 x10^3/uL (1.0-4.8) 1.9 x10^3/uL (1.0-4.8) Monocytes # (Auto) 0.5 x10^3/uL (0.0-1.1) 0.6 x10^3/uL (0.0-1.1) Eosinophils # (Auto) 0.4 x10^3/uL (0.0-0.7) 0.4 x10^3/uL (0.0-0.7) Basophils # (Auto) 0.0 x10^3/uL (0.0-0.2) 0.0 x10^3/uL (0.0-0.2) Prothrombin Time 12.2 SEC (11.7-14.0) Prothromb Time International Ratio 0.9 (0.8-1.1) Activated Partial Thromboplast Time 27 SEC (24-38) Sodium Level 138 mmol/L (136-145) 140 mmol/L (136-145) Potassium Level 4.2 mmol/L (3.5-5.1) 4.4 mmol/L (3.5-5.1) Chloride Level 101 mmol/L (98-107) 106 mmol/L (98-107) Carbon Dioxide Level 25 mmol/L (21-32) 24 mmol/L (21-32) Anion Gap 12 (6-14) 10 (6-14) Blood Urea Nitrogen 16 mg/dL (8-26) 15 mg/dL (8-26) Creatinine 0.8 mg/dL (0.7-1.3) 0.9 mg/dL (0.7-1.3) Estimated GFR (Cockcroft-Gault) 104.5 91.3 BUN/Creatinine Ratio 20 (6-20) Glucose Level 109 mg/dL (70-99) 103 mg/dL (70-99) Lactic Acid Level 1.4 mmol/L (0.4-2.0) 1.8 mmol/L (0.4-2.0) Calcium Level 9.5 mg/dL (8.5-10.1) 8.7 mg/dL (8.5-10.1) Total Bilirubin 0.2 mg/dL (0.2-1.0) 0.2 mg/dL (0.2-1.0) Aspartate Amino Transf (AST/SGOT) 16 U/L (15-37) 23 U/L (15-37) Alanine Aminotransferase (ALT/SGPT) 42 U/L (16-63) 44 U/L (16-63) Alkaline Phosphatase 46 U/L (46-116) 37 U/L (46-116) Creatine Kinase 40 U/L (39-308) Total Protein 7.3 g/dL (6.4-8.2) 6.0 g/dL (6.4-8.2) Albumin 3.7 g/dL (3.4-5.0) 3.0 g/dL (3.4-5.0) Albumin/Globulin Ratio 1.0 (1.0-1.7) Direct Bilirubin 0.1 mg/dL (0.0-0.2) Medications Current Medications Piperacillin Sod/ Tazobactam Sod 4.5 gm/Sodium Chloride 100 ml @ 200 mls/hr 1X ONCE IV Last administered on 11/23/18at 09:54; Start 11/23/18 at 09:30; Stop at 09:59; Status DC Vancomycin HCl (Vanco Per Pharmacy) 1 each 1X ONCE MC ; Start 11/23/18 at 09:15; Stop 11/23/18 at 09:16; Status DC Sodium Chloride 1,000 ml @ 2,460 mls/hr Q25M IV Last administered on 11/23/18at 09:36; Start 11/23/18 at 09:30; Stop 11/23/18 at 10:30; Status DC Fentanyl Citrate (Fentanyl 2ml Vial) 50 mcg PRN Q15MIN PRN IV PAIN GREATER THAN 3/10 Last administered on 11/23/18at 09:39; Start 11/23/18 at 09:15; Stop 11/23/18 at 11:23; Status DC Ondansetron HCl (Zofran) 4 mg STK-MED ONCE .ROUTE ; Start 11/23/18 at 09:29; Stop 11/23/18 at 09:30; Status DC Fentanyl Citrate (Fentanyl 2ml Vial) 50 mcg PRN Q1HR PRN IV PAIN Last administered on 11/23/18at 12:19; Start 11/23/18 at 09:30; Stop 11/23/18 at 13:29; Status DC Acetaminophen (Tylenol) 650 mg PRN Q4HRS PRN PO FEVER; Start 11/23/18 at 09:30; Stop 11/24/18 at 09:29 Nicotine (Nicoderm Cq 21mg) 1 patch DAILY TD Last administered on 11/24/18at 08:43; Start 11/23/18 at 11:00 Vancomycin HCl 1.75 gm/Sodium Chloride 500 ml @ 250 mls/hr 1X ONCE IV Last administered on 11/23/18at 10:00; Start 11/23/18 at 10:30; Stop 11/23/18 at 12:29; Status DC Famotidine (Pepcid) 20 mg BID PO Last administered on 11/24/18 08:43; Start 11/23/18 at 12:00 Cetirizine HCl (ZyrTEC) 10 mg DAILY PO Last administered on 11/24/18 08:43; Start 11/23/18 at 11:30 Linezolid (Zyvox) 600 mg BID PO Last administered on 11/24/18 08:43; Start 11/23/18 at 21:00 Piperacillin Sod/ Tazobactam Sod 3.375 gm/Sodium Chloride 50 ml @ 100 mls/hr Q6HRS IV Last administered on 11/24/18 05:38; Start 11/23/18 at 14:00 Fentanyl Citrate (Fentanyl 2ml Vial) 75 mcg PRN Q2HR PRN IV PAIN Last administered on 11/24/18 05:11; Start 11/23/18 at 13:30 Oxycodone/ Acetaminophen (Percocet 7.5/ 325) 1 tab PRN Q4HRS PRN PO PAIN Last administered on 11/24/18 05:11; Start 11/23/18 at 13:30 Ketorolac Tromethamine (Toradol 30mg Vial) 30 mg PRN Q6HRS PRN IV PAIN Last administered on 11/24/18 08:43; Start 11/23/18 at 15:15; Stop 11/28/18 at 15:14 Sodium Chloride 1,000 ml @ 100 mls/hr Q10H IV Last administered on 11/24/18 05:12; Start 11/23/18 at 15:15 Sertraline HCl (Zoloft) 50 mg DAILY PO Last administered on 11/24/18 08:43; Start 11/24/18 at 09:00 Zolpidem Tartrate (Ambien) 5 mg PRN QHS PRN PO INSOMNIA; Start 11/23/18 at 15:15 Diphenhydramine HCl (Benadryl) 50 mg 1X ONCE IVP Last administered on 11/23/18at 16:00; Start 11/23/18 at 15:15; Stop 11/23/18 at 15:22; Status DC Diphenhydramine HCl (Benadryl) 25 mg PRN Q6HRS PRN PO ITCHING Last administered on 11/24/18at 08:44; Start 11/23/18 at 15:15 Zinc Acetate/ Diphenhydramine (Benadryl Topical) 1 gail Q6HRS PRN TP puritis; Start 11/23/18 at 15:15 Active Scripts Active Clindamycin Hcl 150 Mg Capsule 450 Mg PO TID 7 Days Ondansetron Odt (Ondansetron) 4 Mg Tab.rapdis 1 Tab PO PRN Q6-8HRS PRN Reported Zoloft (Sertraline Hcl) 50 Mg Tablet 1 Tab PO DAILY Vitals/I & O Vital Sign - Last 24 Hours 11/23/18 11/23/18 11/23/18 11/23/18 09:39 09:52 10:30 10:30 Temp 97.6 97.6 Pulse 62 60 Resp 16 16 20 B/P (MAP) 129/78 (95) 142/74 (96) Pulse Ox 96 93 98 O2 Delivery Room Air Room Air Room Air Room Air 11/23/18 11/23/18 11/23/18 11/23/18 12:19 13:49 13:50 15:00 Temp 97.7 97.7 Pulse 74 Resp 20 B/P (MAP) 127/77 (94) Pulse Ox 98 O2 Delivery Room Air Room Air Room Air Room Air 11/23/18 11/23/18 11/23/18 11/23/18 18:38 19:00 19:51 20:39 Temp 98.1 98.1 Pulse 68 Resp 20 B/P (MAP) 127/68 (87) Pulse Ox 94 O2 Delivery Room Air Room Air Room Air Room Air 11/23/18 11/24/18 11/24/18 11/24/18 23:00 03:00 05:11 05:11 Temp 97.8 97.9 97.8 97.9 Pulse 64 57 Resp 20 20 B/P (MAP) 125/62 (83) 111/64 (80) Pulse Ox 96 96 O2 Delivery Room Air Room Air Room Air Room Air 11/24/18 11/24/18 11/24/18 11/24/18 05:41 06:11 07:00 07:40 Temp 98.4 98.4 Pulse 58 Resp 16 B/P (MAP) 121/70 (87) Pulse Ox 96 O2 Delivery Room Air Room Air Room Air Room Air Intake and Output 11/23/18 11/23/18 11/24/18 15:00 23:00 07:00 Intake Total 1000 ml 960 ml 300 ml Balance 1000 ml 960 ml 300 ml ENRRIQUE VALLE MD Nov 24, 2018 09:03
[2018-11-24 11:00] VITALS: BP 112/67
--- NOTE | 2018-11-24 11:05 | PDOC ---
Infectious Disease Note Subjective Subjective still pain in arm but less. Overall feels well No F/C/S/N/V/D/SOa Rash is better ROS ROS o/w neg Vital Sign Vital Signs Vital Signs Date Time Temp Pulse Resp B/P (MAP) Pulse Ox O2 Delivery O2 Flow Rate FiO2 11/24/18 07:40 Room Air 11/24/18 07:00 98.4 58 16 121/70 (87) 96 98.4 Physical Exam PHYSICAL EXAM CONSTITUTIONAL: He is lying in bed. He is cooperative. He is in no acute distress. HEENT: Pupils are equal and reactive with normal conjunctivae. Oral cavity, pharynx is clear. No signs of breakdown. NECK: Supple, no JVD. LUNGS: Clear to auscultation. No wheeze. HEART: S1, S2. ABDOMEN: Soft, nontender, nondistended with positive bowel sounds, no guarding. EXTREMITIES: Without clubbing or cyanosis. Medial of his aspect of his right upper extremity has improved erythema from his mid forearm to his mid biceps area. There is an area of purplish discoloration, surrounded by some blanching. There is no fullness. There is some tenderness. There is mild lower induration. There is trace warmth. SKIN: Otherwise, warm. He has some sun tanned areas on his abdominal area, but there was question of whether there was some mild erythema and some erythema on his left upper extremity improved. IV site is clean. NEUROLOGIC: He is nonfocal. PSYCHIATRIC: Affect is pleasant. Labs Lab Laboratory Tests Test 11/23/18 13:05 11/24/18 05:15 Lactic Acid Level 1.8 mmol/L (0.4-2.0) White Blood Count 6.2 x10^3/uL (4.0-11.0) Red Blood Count 4.36 x10^6/uL (4.30-5.70) Hemoglobin 13.6 g/dL (13.0-17.5) Hematocrit 40.2 % (39.0-53.0) Mean Corpuscular Volume 92 fL (79-100) Mean Corpuscular Hemoglobin 31 pg (25-35) Mean Corpuscular Hemoglobin Concent 34 g/dL (31-37) Red Cell Distribution Width 13.7 % (11.5-14.5) Platelet Count 264 x10^3/uL (140-400) Neutrophils (%) (Auto) 54 % (31-73) Lymphocytes (%) (Auto) 31 % (24-48) Monocytes (%) (Auto) 9 % (0-9) Eosinophils (%) (Auto) 6 % (0-3) Basophils (%) (Auto) 0 % (0-3) Neutrophils # (Auto) 3.4 x10^3uL (1.8-7.7) Lymphocytes # (Auto) 1.9 x10^3/uL (1.0-4.8) Monocytes # (Auto) 0.6 x10^3/uL (0.0-1.1) Eosinophils # (Auto) 0.4 x10^3/uL (0.0-0.7) Basophils # (Auto) 0.0 x10^3/uL (0.0-0.2) Sodium Level 140 mmol/L (136-145) Potassium Level 4.4 mmol/L (3.5-5.1) Chloride Level 106 mmol/L (98-107) Carbon Dioxide Level 24 mmol/L (21-32) Anion Gap 10 (6-14) Blood Urea Nitrogen 15 mg/dL (8-26) Creatinine 0.9 mg/dL (0.7-1.3) Estimated GFR (Cockcroft-Gault) 91.3 Glucose Level 103 mg/dL (70-99) Calcium Level 8.7 mg/dL (8.5-10.1) Total Bilirubin 0.2 mg/dL (0.2-1.0) Direct Bilirubin 0.1 mg/dL (0.0-0.2) Aspartate Amino Transf (AST/SGOT) 23 U/L (15-37) Alanine Aminotransferase (ALT/SGPT) 44 U/L (16-63) Alkaline Phosphatase 37 U/L (46-116) Total Protein 6.0 g/dL (6.4-8.2) Albumin 3.0 g/dL (3.4-5.0) Micro Microbiology 11/23/18 Blood Culture - Preliminary, Resulted NO GROWTH AFTER 1 DAY Objective Assessment Right UE bug bite - discoloration and blanching - Ck nml RUE erythema ? toxin reaction vs Cellulitis Eosinophilia Mild general rash ? reactive Plan Plan of Care Cont Zyvox/Zosyn Cont Zyrtec/Pepcid F/u labs and cults Monitor arm D/w and daughter VICKY GARCÍA MD Nov 24, 2018 11:05
[2018-11-24 15:00] VITALS: BP 133/73
[2018-11-24 19:42] VITALS: BP 121/62
[2018-11-24] MEDS: LACTOBACILLUS RHAMNOSUS GG 1 CAPSULE. PO SCH (19:56)
[2018-11-24] MEDS ORDERED: ZOLPIDEM 5 MG TABLET. PO SCH (21:00)
[2018-11-24 23:48] VITALS: BP 124/71
[2018-11-25 03:52] VITALS: BP 124/73
[2018-11-25 04:02] VITALS: BP 124/73
[2018-11-25] MEDS: oxyCODONE/APAP 7.5/325 1 TAB TABLET PO PRN (04:43)
[2018-11-25] MEDS: PIPERACILLIN/TAZOBACTAM 3.375 GM in IV NORMAL SALINE 50ML 50 ML IV SCH (04:44)
[2018-11-25] MEDS: diphenhydrAMINE HCL 25 MG CAPSULE PO PRN (04:48)
[2018-11-25] MEDS: KETOROLAC 30 MG/ML VIAL. IV PRN (06:32)
[2018-11-25 07:00] VITALS: BP 127/70
[2018-11-25] MEDS: FAMOTIDINE 20 MG TABLET. PO SCH (08:18)
[2018-11-25] MEDS: CETIRIZINE HCL 10 MG TABLET. PO SCH (08:18)
[2018-11-25] MEDS: SERTRALINE 50 MG TABLET. PO SCH (08:18)
[2018-11-25] MEDS: LACTOBACILLUS RHAMNOSUS GG 1 CAPSULE. PO SCH (08:18)
[2018-11-25] MEDS: LINEZOLID 600 MG TABLET PO SCH (08:18)
[2018-11-25] MEDS: NICOTINE 21MG PATCH. TD SCH (08:18)
[2018-11-25] MEDS: IV NORMAL SALINE 1000ML BAG 1,000 ML IV SCH (08:19)
[2018-11-25] MEDS ORDERED: CETI10TA16 PO (09:50)
[2018-11-25] MEDS ORDERED: Nicotine 21MG TD (09:50)
--- NOTE | 2018-11-25 09:52 | PDOC3 ---
Discharge Summary Visit Information Date of Admission: Nov 23, 2018 Date of Discharge: Nov 25, 2018 Admitting Diagnosis Comment: RT Upper extremity cellulitis from insect bite-high possibility of spider bite Final Diagnosis Problems Medical Problems: (1) Insect bite of right upper extremity Status: Acute (2) Right arm cellulitis Status: Acute (3) Smoking addiction Status: Acute Brief Hospital Course Allergies Allergies Coded Allergies Type Severity Reaction Last Updated Verified morphine Allergy Severe Anaphylaxis 11/21/18 Yes Vital Signs Vital Signs Date Time Temp Pulse Resp B/P (MAP) Pulse Ox O2 Delivery O2 Flow Rate FiO2 11/25/18 07:15 Room Air 11/25/18 07:00 97.7 65 18 127/70 (89) 96 97.7 Lab Results Laboratory Tests Test 11/23/18 13:05 11/24/18 05:15 Lactic Acid Level 1.8 mmol/L (0.4-2.0) White Blood Count 6.2 x10^3/uL (4.0-11.0) Red Blood Count 4.36 x10^6/uL (4.30-5.70) Hemoglobin 13.6 g/dL (13.0-17.5) Hematocrit 40.2 % (39.0-53.0) Mean Corpuscular Volume 92 fL (79-100) Mean Corpuscular Hemoglobin 31 pg (25-35) Mean Corpuscular Hemoglobin Concent 34 g/dL (31-37) Red Cell Distribution Width 13.7 % (11.5-14.5) Platelet Count 264 x10^3/uL (140-400) Neutrophils (%) (Auto) 54 % (31-73) Lymphocytes (%) (Auto) 31 % (24-48) Monocytes (%) (Auto) 9 % (0-9) Eosinophils (%) (Auto) 6 % (0-3) Basophils (%) (Auto) 0 % (0-3) Neutrophils # (Auto) 3.4 x10^3uL (1.8-7.7) Lymphocytes # (Auto) 1.9 x10^3/uL (1.0-4.8) Monocytes # (Auto) 0.6 x10^3/uL (0.0-1.1) Eosinophils # (Auto) 0.4 x10^3/uL (0.0-0.7) Basophils # (Auto) 0.0 x10^3/uL (0.0-0.2) Sodium Level 140 mmol/L (136-145) Potassium Level 4.4 mmol/L (3.5-5.1) Chloride Level 106 mmol/L (98-107) Carbon Dioxide Level 24 mmol/L (21-32) Anion Gap 10 (6-14) Blood Urea Nitrogen 15 mg/dL (8-26) Creatinine 0.9 mg/dL (0.7-1.3) Estimated GFR (Cockcroft-Gault) 91.3 Glucose Level 103 mg/dL (70-99) Calcium Level 8.7 mg/dL (8.5-10.1) Total Bilirubin 0.2 mg/dL (0.2-1.0) Direct Bilirubin 0.1 mg/dL (0.0-0.2) Aspartate Amino Transf (AST/SGOT) 23 U/L (15-37) Alanine Aminotransferase (ALT/SGPT) 44 U/L (16-63) Alkaline Phosphatase 37 U/L (46-116) Total Protein 6.0 g/dL (6.4-8.2) Albumin 3.0 g/dL (3.4-5.0) Brief Hospital Course Mr. Moraes is a 47 old white male who came in because of right upper extremity significant swelling and redness, comanage with ID, was on Zyvox and other a ntibiotic. After 2 overnights, right swelling significant better, no induration. Did not need any I and D has no abscess. Started as a bite, he thinks from a spider We are waiting for ID rounds, possible high likelihood home today with by mouth antibiotics. Blood cultures negative 2 Consults: ID Procedures none Discharge Information Condition at Discharge: Improved, Stable Disposition/Orders: D/C to Home Scheduled Clindamycin Hcl (Clindamycin Hcl) 150 Mg Capsule, 450 MG PO TID for 7 Days, #63 Prescribed by: KATHI MARTINEZ APRN on 11/21/18 1655 Sertraline Hcl (Zoloft) 50 Mg Tablet, 1 TAB PO DAILY for anxiety, #30 Ref 2 (Reported) Entered as Reported by: AMANDA CASTILLO on 11/23/181628 Last Action: New Order on 11/23/181628 by AMANDA CASTILLO [Nicotine 21MG] 1 PATCH PATCH, 1 PATCH TD DAILY for smoking cessation MDD 1, #7 Prescribed by: BRAD TIJERINA on 11/25/18 0950 Scheduled PRN Ondansetron (Ondansetron Odt) 4 Mg Tab.rapdis, 1 TAB PO PRN Q6-8HRS PRN for NAUSEA, #16 Prescribed by: KATHI MARTINEZ APRN on 11/21/18 1655 BRAD TIJERINA MD Nov 25, 2018 09:52
--- NOTE | 2018-11-25 10:48 | PDOC ---
Infectious Disease Note Subjective Subjective Much better. Swelling and pain improved. Overall feels well No F/C/S/N/V/D/SOa Rash is better ROS ROS o/w neg Vital Sign Vital Signs Vital Signs Date Time Temp Pulse Resp B/P (MAP) Pulse Ox O2 Delivery O2 Flow Rate FiO2 11/25/18 07:15 Room Air 11/25/18 07:00 97.7 65 18 127/70 (89) 96 97.7 Physical Exam PHYSICAL EXAM CONSTITUTIONAL: He is in a chair. He is cooperative. He is in no acute distress. HEENT: Pupils are equal and reactive with normal conjunctivae. Oral cavity, pharynx is clear. No signs of breakdown. NECK: Supple, no JVD. LUNGS: Clear to auscultation. No wheeze. HEART: S1, S2. ABDOMEN: Soft, nontender, nondistended with positive bowel sounds, no guarding. EXTREMITIES: Without clubbing or cyanosis. Medial of his aspect of his right upper extremity has improved erythema from his mid forearm to his mid biceps area. There is an area of purplish discoloration, surrounded by some blanching - better. There is no fullness. There is less tenderness. There is less induration. There is trace warmth. Bruise to LUE SKIN: Otherwise, warm. He has some sun tanned areas on his abdominal area, but there was question of whether there was some mild erythema and some erythema on his left upper extremity improved. IV site is clean. NEUROLOGIC: He is nonfocal. PSYCHIATRIC: Affect is pleasant. Labs Micro Microbiology 11/23/18 Blood Culture - Preliminary, Resulted NO GROWTH AFTER 1 DAY Objective Assessment Right UE bug bite - discoloration and blanching - Ck nml RUE erythema ? toxin reaction vs Cellulitis Eosinophilia Mild general rash ? reactive Plan [facility] on Zyvox Cont Zyrtec/Pepcid outpatient Can F/u with Dr. Wilkins If needed we well be happy to see as well D/w nursing VICKY GARCÍA MD Nov 25, 2018 10:48
--- NOTE | 2018-11-25 11:35 | NUR ---
Discharge Note: [facility] Discharge instructions and discharge home medications reviewed with Patient and a copy given. All questions have been answered and understanding verbalized. The following instructions and handouts were given: information about cellulitis. Discontinued lines and drains: IV lines in left AC and left hand removed, catheter tips intact. Patient discharged to home with self care with , patient ambulated to discharge vehicle.
== END 2018-11-25 11:35 | disposition home or self-care (01) | DRG 603 ==
LOC: ER 08:46 → 4 NORTH 09:08
PROVIDERS: ADMIT Internal Medicine; ATTEND Internal Medicine
DX: L03.113 Cellulitis of right upper limb (principal); S40.861A Insect bite (nonvenomous) of right upper arm, initial encounter; D72.1 Eosinophilia; W57.XXXA Bitten or stung by nonvenomous insect and other nonvenomous arthropods, initial encounter; I10 Essential (primary) hypertension; E78.00 Pure hypercholesterolemia, unspecified; F41.9 Anxiety disorder, unspecified; F17.210 Nicotine dependence, cigarettes, uncomplicated; Z88.5 Allergy status to narcotic agent; Y93.89 Activity, other specified; Y92.89 Other specified places as the place of occurrence of the external cause; Y99.8 Other external cause status
CPT/HCPCS: 36415; 73070; 80048; 80053; 80076; 82550; 83605; 85025; 85610; 85730; 87040; 96365; 96368; 96375; J1200; J1885; J2543; J3010; J3370; J7030; J7040; Q0163; 99285-25